=== PATIENT | female | born 1940 | race Caucasian/White ===

== ENCOUNTER → 2023-07-23 | Outpatient (CLI) | payer MEDICARE ==
--- NOTE | 2023-07-23 08:50 | P.GSHP ---
History of Present Illness H&P Date: 07/23/23 Chief Complaint: right breast invasive lobular cancer Stella is an 83 year old whtie female seen in consultation for Dr. Burgess regarding a right breast invasive lobular cancer. Screening mammogram on . This was felt to be bilateral. Seroquel and additional views of the right breast were recommended. Additional views were obtained on [id number]. This revealed depressed to be heterogeneously dense with a persistent mass in the upper outer quadrant of the right breast measuring 6.2 x 3.6 cm. This led to an ultrasound on the same date. The ultrasound revealed a heterogeneous irregular tissue with masslike appearance from the 9 o'clock position. It measu red grossly up to 6.4 cm. Biopsy was recommended. Biopsy was performed on [id number] which revealed an invasive lobular carcinoma grade 2. This is ER/PA positive and HER-2 questionable. The patient complains of some fullness in her right breast, it has been present for about 3 months. She has an inverted nipple for about 1 year on the right side. She does not feel anything of concern in the left breast. She has not had any surgery on her breast. She has intermittant twinges in her right breast. She is not compalining of any nipple discharge. caffeine: 3 cups/1/2 caf/day nicotine: none chocolate:occasional Family History: mother: brain cancer at 35 Hormonal History: menarche: 13 G0 menopause: hysterectomy at 52, took her ovaries, done for fibroids Surgical history: hysterectomy gallbladder Medical History: HTN SociaL History: nicotine: none alcohol: none drugs: none - Constitutional Constitutional: Denies chills, Denies fever - EENT Eyes: denies blurred vision, denies pain Ears: deny: decreased hearing, tinnitus Ears, nose, mouth and throat: Denies headache, Denies sore throat - Breasts Breasts: bilateral: as per HPI - Cardiovascular Cardiovascular: Denies chest pain, Denies shortness of breath - Respiratory Respiratory: Denies cough, Denies 7 - Gastrointestinal Gastrointestinal: Denies abdominal pain, Denies diarrhea, Denies nausea, Denies vomiting - Genitourinary (Female) Genitourinary: Denies dysuria, Denies hematuria - Menstruation Menstruation: Reports post hysterectomy - Musculoskeletal Musculoskeletal: Denies myalgias - Integumentary Integumentary: Denies pruritus, Denies rash - Neurological Neurological: Denies numbness, Denies weakness - Psychiatric Psychiatric: Denies anxiety, Denies depression - Endocrine Endocrine: Denies fatigue, Denies weight change - Hematologic/Lymphatic Comment: none - Allergic/Immunologic Allergic/Immunologic: Reports as per HPI Surgical - Exam - General no distress - Eyes normal ocular movement - Neck trachea midline - Respiratory normal respiratory effort - Cardiovascular Rhythm: regular Heart Sounds: normal: S1, S2 - Abdomen Abdomen: soft, non tender, no guarding, no rigid, no rebound - Integumentary normal turgor - Neurologic no disoriented, no combative - Musculoskeletal normal gait - Psychiatric oriented to time, oriented to person, oriented to place, speech is normal, memory intact Breast Exam: BRA: 38B inspection: Right nipple retraction, mass upper outer quadrant right breast Palpation: Right breast: Multi-positional exam mass upper outer quadrant approximately 12 x 11 cm in size, retraction of the nipple on the right, no fixation to chest wall Right axilla: No adenopathy of concern Left breast: Multi-positional exam no dominant masses or nodules of concern Left axilla: No adenopathy of concern Results Mammogram and ultrasound results reviewed with Dr. Coyne Pathology results reviewed, awaiting HER-2 Assessment and Plan Assessment: Impression: Right breast invasive lobular carcinoma Plan: MRI Appointment medical oncology Await HER-2 status Presentation of case at tumor board Cc: Dr. Burgess
[2023-07-23 08:55] VITALS: BP 173/96; PULSE 69; RESP 17; TEMP 98.3
== END ==
LOC: WWCWWP 07:39
PROVIDERS: ATTEND Surgery
DX: Z12.31 Encounter for screening mammogram for malignant neoplasm of breast (principal); D05.01 Lobular carcinoma in situ of right breast; I10 Essential (primary) hypertension; N63.11 Unspecified lump in the right breast, upper outer quadrant; Z90.710 Acquired absence of both cervix and uterus; Z79.899 Other long term (current) drug therapy; Z79.82 Long term (current) use of aspirin

== ENCOUNTER → 2023-08-03 | Outpatient (CLI) | payer MEDICARE ==
--- NOTE | 2023-08-06 09:50 | BMR ---
EXAM DATE: 08/05/2023 EXAM DESCRIPTION: MRI-Breast Bilat (W/WO Contrast) INDICATION: >20% lifetime risk for malignancy presenting for high risk surveillance COMPARISON: Comparison is made with relevant prior imaging in PACS. CONTRAST: 8 cc of Gadavist TECHNIQUE: Multiplanar MRI imaging of both breasts was performed with a dedicated breast coil, before and after intravenous administration of gadolinium contrast, using the standard breast mass protocol. Study was performed at [facility] with Radiologic interpretation by [facility]. FINDINGS: General breast composition: There are scattered areas of fibroglandular tissue Background parenchymal enhancement: Mild FINDINGS: Right Breast: Review of the dynamic contrast-enhanced series shows irregular masses and clumped nonmass enhancement in the upper outer breast and extending to involve all 4 quadrants measuring 8.5 x 7.3 x 6.9 cm. There is a clip artifact in the outer breast at the site of known biopsy. The non mass enhancement extends to the nipple with significant nipple retraction diffuse skin thickening. The non mass enhancement extends posteriorly to the pectoralis muscle with abnormal tethering and signal concerning for involvement of the pectoralis major muscle. Limitations in technique limited the evaluation of the axilla however there 3 are at least 3 abnormal level 1 and 2 lymph nodes with associated abnormal nonmass enhancement. Left Breast: Review of the dynamic contrast-enhanced series shows no rapidly enhancing masses, suspicious enhancement patterns or other abnormalities. The T2 weighted series shows no abnormality. IMPRESSION: Right Breast: BI-RADS Category6- Known biopsy proven malignancy 1. Multicentric biopsy proven disease involving all 4 quadrants of the breast with measurements as above. There is nonmass enhancement extending to and involving the nipple with abnormal retraction, there is also extension to the pectoralis muscle with abnormal enhancement and tethering of the muscle concerning for involvement of disease. 2. Limited evaluation of the axilla demonstrate at least 3 abnormal level 1 and 2 lymph nodes, one of which has been biopsied. Recommendation: Surgical/oncological consultation. Left Breast: BI-RADS Category 1- Negative No MRI evidence of malignancy. Recommendation: MRI screening in 1 year OVERALL ASSESSMENT -- BI-RADS 6 MTDD
== END | disposition home or self-care (01) ==
LOC: RADMRIMAIN 13:50
PROVIDERS: ATTEND Surgery
DX: C50.411 Malignant neoplasm of upper-outer quadrant of right female breast (principal); C50.511 Malignant neoplasm of lower-outer quadrant of right female breast
CPT/HCPCS: 77049; A9585

== ENCOUNTER → 2023-08-15 | Outpatient (CLI) | payer MEDICARE ==
--- NOTE | 2023-08-19 22:32 | PE ---
EXAMINATION TYPE: PET CT fusion skull to thigh DATE OF EXAM: 08/15/2023 COMPARISON: No pertinent CT Prior PET/CT: None HISTORY: Breast cancer TECHNIQUE: Following the intravenous administration of 13.5 mCi of F-18 FDG, whole body images are p erformed from the skull base to the midthigh. Images are reviewed on the computer in the coronal, ax ial, and sagittal planes. Reconstructed rotating images are created on independent workstation and r eviewed on the computer. A localization and attenuation correction CT is performed in conjunction w ith the PET scan. DLP: 676.73 mGycm SCAN: Initial Blood glucose: 86 mg/dL Average Mediastinum SUV: 2.71 Average Liver SUV: 3.53 FINDINGS: NECK: No abnormal uptake THORAX: There is focal uptake within the right breast image 116, SUV 5.66. This may be the patient's primary. Intrathoracic uptake is not identified. ABDOMEN: No abnormal uptake PELVIS: No abnormal uptake. OSSEOUS STRUCTURES: There is a focus of uptake within the scoliotic thoracic spine this appears to be the right lateral T12 level. Image 123, SUV 6.[address]: There is a large herniation of stomach into the left posterior thoracic region. COMPARISON: None IMPRESSION: 1. There may be a solitary suspicious area within the lower thoracic spine which could be compatible with a metastatic lesion. 2. Additional metastasis is not identified. 3. Some uptake in what may be the patient's primary in the anterior lateral right breast.
== END | disposition home or self-care (01) ==
LOC: RADPETMAIN 15:00
PROVIDERS: ATTEND Internal Medicine
DX: C50.411 Malignant neoplasm of upper-outer quadrant of right female breast (principal)
CPT/HCPCS: 78815; A9552

== ENCOUNTER → 2023-08-28 | Outpatient (CLI) | payer MEDICARE ==
--- NOTE | 2023-09-03 17:07 | MR ---
EXAMINATION TYPE: MR thoracic spine wo/w con DATE OF EXAM: 08/28/2023 COMPARISON: PET CT 08/15/2023 HISTORY: 83-year-old female C50.411, history of breast cancer Technique: Multiplanar, multisequence images of the thoracic spine were obtained before and after adm inistration of 8 mL intravenous Gadavist gadolinium contrast. FINDINGS: Dextroconvex scoliosis. There is a T2 bright and T1 hypointense lesion measuring 1.6 cm within the T12 vertebral body that sh ows avid postcontrast enhancement. This corresponds to the small focus of increased hypermetabolism o n patient's PET/CT. Other scattered small T2 hyperintense lesions show bright T1 signal and fat saturation suggesting sca ttered fatty matrix hemangiomas. 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 Moderate degenerative disc disease with mild bulging discs in the lower thoracic spine and thoracolumbar junction without definite spinal canal stenosis. Underlying large hiatal hernia containing the and essentially the entire stomach within the lower carlos st. Heterogeneous red marrow hyperplasia is present throughout. IMPRESSION: 1. Solitary, avidly enhancing lesion measuring 1.6 cm involving the T12 vertebral body corresponding to the metabolic area on PET/CT. The finding remains suspicious. Osseous metastasis remains to be exc luded. 2. Dextroconvex scoliosis. Large hiatal hernia containing essentially the entire stomach within the l ower chest.
== END | disposition home or self-care (01) ==
LOC: RADMRIMAIN 07:50
PROVIDERS: ATTEND Internal Medicine
DX: M41.84 Other forms of scoliosis, thoracic region (principal); C50.411 Malignant neoplasm of upper-outer quadrant of right female breast; K44.9 Diaphragmatic hernia without obstruction or gangrene
CPT/HCPCS: 72157; A9585

== ENCOUNTER 2023-09-12 08:27 | Day surgery (SDC) | payer MEDICARE ==
[2023-09-12 10:52] VITALS: PULSE 64; TEMP 97.6
[2023-09-12 11:16] VITALS: BP 164/90; RESP 18
--- NOTE | 2023-09-12 15:21 | US ---
EXAMINATION TYPE: US biopsy lymph node DATE OF EXAM: 09/12/2023 11:00 AM CLINICAL INDICATION:Female, 83 years old with history of C50.411 COMPARISON: Biopsy-proven right breast cancer. PET CT 08/15/2023 and MRI breast 08/03/2023 ATTENDING: Dr. Erwin Initial scanning of the right axilla in attempt to find any abnormal lymphadenopathy. A single small 7 mm hypoechoic circumscribed oval nodule is identified and targeted for biopsy. TECHNIQUE: Ultrasound guided percutaneous biopsy of the small 7 mm right axillary nodule using coaxial method. Jenny navarro administered light sedation to the patient. The patient was monitored by a qualified trained jenny medina independent of the Radiologist during sedation. FINDINGS: The procedure was explained to the patient. All questions were answered and informed consent was obta ined. The patient was placed supine and transverse ultrasound images were obtained. The overlying skin was marked and prepped using sterile method. Timeout was taken per protocol. Follo wing administration 1% local lidocaine anesthesia, a 17/18-gauge biopsy system was advanced with need le tip visualized within within the nodule. Two 18-gauge core biopsy was obtained, placed in formalin solution, and sent to pathology. The needle was removed. Other additional ultrasound scanning shows no abnormal fluid collection or ev ident complication. Hemostasis was obtained and a dressing was placed. Patient was taken for postprocedure observation in stable condition. IMPRESSIONS: Status post ultrasound guided biopsy of a small 7 mm nodule in the right axilla. Possible small lymph node, questionable MRI correlate. No paula axillary adenopathy could be identified by ultrasound. Pa thology results pending.
== END 2023-09-12 11:05 | disposition home or self-care (01) ==
LOC: RADPROMAIN 08:27
PROVIDERS: ATTEND Internal Medicine
DX: C50.411 Malignant neoplasm of upper-outer quadrant of right female breast (principal)
CPT/HCPCS: 38505; 76942; 88305; 88341; 88342

== ENCOUNTER → 2023-10-28 | Outpatient (CLI) | payer MEDICARE ==
--- NOTE | 2023-10-28 09:26 | CT ---
EXAMINATION TYPE: CT thor lumbar spine wo con DATE OF EXAM: 10/28/2023 COMPARISON: Thoracic spine radiograph 10/16/2023 and MRI 08/28/2023 HISTORY: 83-year-old female S24.114A, t11 lesion TECHNIQUE: Contiguous axial scanning of the thoracic and lumbar spine without IV contrast. Coronal an d sagittal reconstructions performed. CT DLP: 1110.1 mGycm Automated exposure control for dose reduction was used. FINDINGS: Redemonstrated large hiatal hernia with the entire stomach located in the lower chest area some of th e transverse colon also herniates into the left lower chest. There is diffuse osteopenia present. Within the right side of the T12 vertebral body, there are small foci of sclerosis and this seems to correspond to the region of hypermetabolism and enhancement on patient's prior PET CT and MRI, respec tively. However, no discrete mass or lytic destruction is identified here. Numerous additional small scattered sclerotic foci are present throughout the osseous structures. The y appear slightly more numerous than on 08/15/2023.. There is a S-shaped scoliosis of the thoracolumbar spine with bony ankylosis of the thoracic spine. V ertebral body heights and alignment are maintained. 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 Hypertrophic facet ar thropathy also present throughout the lumbar spine. At least mild spinal canal stenosis L4-L5. Alignment is maintained. Very minimal moderate neuroforami nal stenoses throughout the lumbar spine, more moderate to severe on the right at L4-L5. IMPRESSION: 1. NO LYTIC DESTRUCTION IDENTIFIED WITHIN THE RIGHT T12 VERTEBRAL BODY AT THE SITE OF PREVIOUS ENHANC ING LESION ON MRI. THERE ARE SOME SMALL SCLEROTIC FOCI HERE. ADDITIONAL SCATTERED SCLEROTIC FOCI THRO UGHOUT THE VISUALIZED SKELETON APPEAR TO BE MORE NUMEROUS COMPARED TO PRIOR PET/CT. UNABLE TO EXCLUDE SUBTLE PROGRESSION IN DIFFUSE OSSEOUS METASTATIC DISEASE. FOLLOW-UP RECOMMENDED. 2. REDEMONSTRATED S-SHAPED SCOLIOSIS WITH BONY ANKYLOSIS OF THE THORACIC SPINE. NO VERTEBRAL COMPRESS ION COLLAPSE OR MALALIGNMENT. SPONDYLOTIC CHANGE THROUGHOUT THE LUMBAR SPINE. 3. REDEMONSTRATED LARGE HIATAL HERNIA INVOLVING THE ENTIRE STOMACH AND A PORTION OF THE TRANSVERSE CO ISACC.
== END | disposition home or self-care (01) ==
LOC: RADCTMAIN 08:40
PROVIDERS: ATTEND Orthopaedic Surgery
DX: S24.114A Complete lesion at T11-T12 level of thoracic spinal cord, initial encounter (principal); M41.9 Scoliosis, unspecified; M47.816 Spondylosis without myelopathy or radiculopathy, lumbar region; K44.9 Diaphragmatic hernia without obstruction or gangrene
CPT/HCPCS: 72128; 72131

== ENCOUNTER 2023-11-07 10:13 | Day surgery (SDC) | payer MEDICARE ==
--- NOTE | 2023-11-07 06:37 | P.HPOR ---
History of Present Illness H&P Date: 10/16/23 .D:Date: 10/16/23 : 03:20pm .T:Title: Aman Villarreal [facility] H&P Age: 83 year Height: 5'4" Weight: 173 lbs BMI: 29.70 kg/m2 Occupation: Retired VAS: 0 CC: Evaluation for possible metastasis of thoracic spine (Referral from Dr. Hampton) IMPRESSION: It was my pleasure to have seen and examined Stella. I reviewed the patient's clinical syndrome, physical findings, and imaging studies during the appointment today. It is my impression that the patient has a diagnosis of. 1. T12 lesion, unknown 2. h/o breast cancer PLAN: Based on my findings I suggest the following course of action: -I discussed treatment options with the patient, including operative and non- operative options, and they have elected to proceed with the following surgical procedure: T12 biopsy with ablation The indications, risks, benefits, and alternatives to surgery were discussed with the patient and family at length. Specifically (but not limited to) the risks of infection, stiffness, recurrence of symptoms, need for revision surgery, local numbness, neurovascular injury, and blood clots were discussed. The patient's questions were answered. The decision to proceed was made. Consent will be obtained for the procedure. -I have ordered CT scans of the thoracic and lumbar spine for preoperative/surgical planning. - Ambulate daily - Take medications as directed - Ice and rest for pain and swelling control. FOLLOW UP: Post Procedure HISTORY: Ms. Callejas presents to the office today, 10/16/23, for evaluation for possible metastasis of thoracic spine. The patient was referred to my office by Dr. Hampton for further evaluation and discussion of possible biopsy. The patient denies experiencing any mid or low back pain at this time. The patient does note history of breast cancer in June 2023. The patient denies any lower extremity pain, numbness, or tingling. She notes no difficulties with completing activities of daily living. She denies experiencing any sleep disturbances. She is not currently taking any pain medications. The patient denies any f/c/sob/cp, perineal numbness or tingling, bowel or bladder incontinence/retention. The patient ambulates independently today. The patients' past social, medical, family, surgical history, as well as review of systems, have been reviewed. Please refer to the Neurosurgery History and Physical form that has been scanned into our electronic medical record system. 16 points review of systems completed and as stated in HPI, all other systems reviewed are negative. Social History: Reviewed, see appropriate section of the chart for details. Family History: Reviewed, see appropriate section of the chart for details. P2 Past Medical History: Reviewed, see appropriate section of the chart for details. Current Medications: P1Rx: anastrozole 1 mg tablet Ref: 0 Rx: aspirin 81 mg tablet,delayed release Ref: 0 Rx: Calcium 600 mg calcium (1,500 mg) tablet Ref: 0 Rx: levothyroxine 50 mcg capsule Ref: 0 Rx: lisinopriL 10 mg tablet Ref: 0 Rx: metoprolol tartrate 25 mg tablet Ref: 0 Rx: multivitamin tablet Ref: 0 Rx: simvastatin 40 mg tablet Ref: 0 P1 RADIOGRAPHS: Multiview Xray of the Thoracic Spine taken on 10/16/2023 at [facility] are reviewed today in office and demonstrate: Aligment maintained. No fractures. No lytic lesions noted. NO blastic lesions noted that are visible on XRAY. PET CT shows more. PET CT scan performed at [facility] on 08/15/2023: area of increased uptake at the T12 vertebral body region. No other areas of suspicious lesions at this time. No fractures noted at this time. PHYSICAL EXAM: General: AOX3, NAD, Well hydrate, Well nourished HEENT: No lumps or masses Heart: RRR, no murmur, no beverly Lungs: CTAB, no w/r/r Extremities: No color changes, no pooling Hairy Patches: ABSENT Dorsal Skin Dimples: Normal [employer] spots: ABSENT Surgical Incisions: Muscle Appearance: Well formed, no atrophy Palpation: Midline: NO Paracervical: NO Parathoracic: NO Paralumbar: NO SIJ Testing: Yes TTP: No Fortins Finger: No FABER4: No Compression: No Distraction: No Thigh thrust: No Hip thrust: No Postural Balance: Coronal: BALANCED Sagittal: BALANCED Shoulder height: LEVEL Pelvic Girdle: LEVEL ROM and Appearance: Neck: UNRESTRICTED Lumbar: UNRESTRICTED Shoulders: Symmetrical Hips: Symmetrical Knees: Symmetrical Hands: Symmetrical Feet: Symmetrical VASCULAR STATUS: RUE- 2 LUE-2 RLE-2 LLE-2 Edema: NONE NEUROLOGICAL EXAMINATION: Mental Status: Awake, alert, oriented fully with normal attention, concentration and memory. Fluent appropriate speech. CRANIAL NERVES: I: Olfactory not tested. II: Visual acuity normal, no visual field deficit noted with confrontation. III,IV: Normal pupillary reflexes & intact extraocular movements without nystagmus. V,: Intact symmetrical facial sensation. VII: Intact symmetrical facial motor movementVIII: Hearing intact. IX,X: Intact gag, swallow, & normal voice. XI: Sternocleidomastoid, trapezius function intact. XII: Tongue midline with normal movements. TENSIONING: SLR-NEG Lhermittes- NEG Spurling's Sign- NEG Cubital Percussion- NEG Tinels at wrist- NEG MOTOR EXAM (0-5/5, NT) Muscle appearance:Symmetrical, without signs of atrophy or dystrophy UPPER EXTREMITY RIGHT LEFT Shoulder Abduction 5 5 Biceps 5 5 Triceps 5 5 Wrist Extension 5 5 Hand Intrinsic 5 5 Propeller Layout Worker 5 5 -Hand and finger dexterity intact bilaterally? YES -Dysdiadochokinesia examination negative bilaterally? YES LOWER EXTREMITY RIGHT LEFT Hip Flexion 5 5 Knee Extension 5 5 Knee Flexion 5 5 Dorsiflexion 5 5 Plantarflexion 5 5 EHL 5 5 FHL 5 5 -Toe heel walk / heel-toe walk intact while maintaining satisfactory balance? yes -Squatting/straightening w/o assistance to a min of 60 degree knee flexion? yes -Single leg stance: intact -Trendelenburg sign negative bilaterally REFLEXES (0-4/2, NT): RUE-2LUE-2 RLE-2 LLE-2 PATHOLOGICAL REFLEXES: Hoffmans: ABSENT BL Clonus: ABSENT BL Babinski: NEG BL Rectal Tone: INTACT SENSATION (0-4, NT): RUE-2LUE-2 RLE-2 LLE-2 Dermatomal deficit: GAIT AND FUNCTIONAL EVALUATION: Ambulatory aids- INDEPENDENT Rombergs test- NEG toe/heel walk- INTACT Squatting to a min of 60 deg and back- ABLE Single leg stance- ABLE Hand to finger (nose)- ABLE smooth Spine Surgery Risk Review Ms. Callejas is presenting for evaluation of for evaluation for possible metastasis of thoracic spine . It was my pleasure to have seen and examined Ms. Callejas. In our visit today we have had a chance to go over subjective complaints, physical examination findings and treatments including the natural course history without intervention and various interventional options. The patients imaging demonstrates: Multiview Xray of the Thoracic Spine taken on 10/16/2023 at [facility] are reviewed today in office and demonstrate: Aligment maintained. No fractures. No lytic lesions noted. NO blastic lesions noted that are visible on XRAY. PET CT shows more. PET CT scan performed at [facility] on 08/15/2023: area of increased uptake at the T12 vertebral body region. No other areas of suspicious lesions at this time. No fractures noted at this time. On physical exam, Ms. Callejas demonstrates: The patient was referred to my office by Dr. Hampton for further evaluation and discussion of possible biopsy. The patient denies experiencing any mid or low back pain at this time. The patient does note history of breast cancer in June 2023. The patient denies any lower extremity pain, numbness, or tingling. I have explained to the patient that as their condition progresses it will cause further neurological deficits and eventual paralysis. Based on the patients imaging, physical exam, and the rapid progression and disabling nature of their symptoms, at this time I recommend surgery in the form of a: T12 biopsy with ablation. I discussed the risk and benefits of this procedure at length with Ms. Callejas. The patient agreed to considered pursuing the procedure above mentioned. Prior to surgery, she should follow up with her PCP (Cardio, ID, IM etc) for clearance. Questions were invited and answered, and the patient wishes to proceed as outlined below. Currently, I am recommendin.T12 biopsy with ablation 2.Review of surgical risks and benefits as well as an educational packet on the proposed surgical procedure. Risks: All surgical procedures come with inherent risks, including those related to positioning, anesthesia, intraoperative findings, and postoperative complications. It is important to understand that surgery does not come with any guarantee of a successful outcome as complications and adverse events are always possible. The patient was given a handout in office today discussing the surgical procedure and risks associated with the intervention, both of which were discussed with the patient. These risks include but are not limited to the following: * Experiencing same, different or even worse symptoms in back, neck, arms, or legs compared to before surgery. Requiring further surgery or other forms of treatment presently or at some time in the future at same or other levels of the intended spine surgery. On an extreme but fortunately relatively rare basis severe complication such as blindness, stroke, heart attack, temporary and/or permanent nerve injury, paralysis, coma, or may occur, sometimes without known explanation. Surgical complications may include but are not limited to risk of infection, fluid accumulation in the surgical dissection site, including a seroma or hematoma, that requires additional surgery, wound drainage, bleeding, new numbness or weakness, vision changes/loss, spinal fluid leakage, non-healing and/or infected incision, headaches, difficulty or inability to swallow, hoarseness, hemopneumothorax, pneumothorax, impotence, retrograde ejaculation, vaginal dryness; injury to nerves, spinal cord, blood vessels, lymphatics or other vital organs (i.e., bowel injury, injury to the great vessels); heterotopi c bone formation; complications related to the hardware such as screws, rods, cages including misplaced hardware, device failure, instrumentation at the wrong spine level, hardware fracture/breakage, or hardware loosening; vertebral failure of the spinal column above or below the newly placed hardware; retained surgical instrumentations or devices and the need for further surgery. * Medical risks of the planned spine surgery include but are not limited to generalized Infections to the whole body or local areas outside of the surgical site (sepsis), heart attack, bleeding, anaphylaxis, meningitis, seizure, epilepsy, hearing loss, burn matthew, laceration of the head or other areas of the body, bruising, hypersensitivity of the skin, bladder over distension; allergic reaction; shoulder injury related to positioning; fat, blood and air clots to other areas of the body like heart, lungs, brain; failure of internal organs such as lungs, kidneys, liver and excessive bleeding. If blood transfusions are necessary, note that transfusions may cause intolerance reactions such as anaphylaxis or other complex reactions. Despite best efforts, the results of spine surgery might not heal in terms of bone, soft tissues such as skin, fascia, ligaments, and joints. Additionally, in order to achieve best possible results, spine surgery may be carried out beyond the initially planned levels and involve decompression, fusion including insertion of hardware at levels other than the original intended area of surgical interest change some portions of the procedure in order to ensure the best possible outcomes. With spine surgery and spinal fusion, there are different off label uses of instrumentation (devices, implants and hardware) as well as biological substances (bone morphogenic proteins, demineralized bone matrix) as well as using extra bone from allograft sources (i.e. cadaver bone) or autograft (iliac crest bone, ribs, or the spine itself). The patient has been given information about these practices and their inherent risks and benefits. Former[facility] is an educational center that serves as a training facility for neurosurgical and orthopedic FULL STACK NET DEVELOPER and Nursing students. Physician assistants are medically trained surgical providers who function in the outpatient, inpatient, and operating room setting under the direct supervision of the attending surgeon. Formerly [facility] has multiple operating rooms with single and overlapping rooms running daily. They currently function under the required guidelines as produced by the [facility] Finance Committee with regards to the overlapping rooms and will continue to comply with changes to this policy as they occur. The requirements include and are complied with as follows: (1) the critical portions of the overlapping rooms will not occur at the same time, (2) the attending physician will be physically present during the critical portions of the procedure and immediately available during the entire case, and (3) a back-up attending is designated should the primary attending not be immediately available. The patient has had a chance to review all the listed information, has been given print outs detailing this information, and has had all his/her questions answered to their satisfaction. It was my pleasure to have seen and examined Ms. Callejas. In our visit today we have had a chance to go over my understanding of our patient's current condition, the natural course history without intervention and various interventional options. Questions were invited and answered, and the patient wishes to proceed as outlined above. I have seen and examined the patient for 25 minutes and we have spent more than 50% of the time in repeat and detailed counseling about the patient's condition, its natural course history with out and as much as can be predicted with surgery and re-review of various surgical treatment options. In conclusion, Ms. Callejas requested we proceed with the above suggested surgery and are willing to accept risks and limitations of the suggested surgery as nature of the disease process and our best attempts at treatment for the condition. Thank you again for allowing us to be part of your patient's care. Please don't hesitate to contact me if you have any further questions. Signed and authenticated by: dewayne Carey DO [facility] Minimally Invasive Spine Surgery [address] [place] [address] PATIENT EDUCATION: Medications Reviewed: YES In our visit today Ms. Callejas and I have had a chance to go over my understanding of the patient's current condition, the natural course history without intervention and various interventional options. Questions were invited and answered, and the patient wishes to proceed as outlined above. I will be sure to keep you updated after Ms. Callejas returns here for further follow-up. Thank you again for your referral. Please do not hesitate to contact me if you have any further questions. Signed and authenticated by: Ming Swift [place] [facility] [address] [place] [address] Kristy, [address] [address] This message is confidential, intended only for the named recipient(s) and may contain information that is privileged or exempt from disclosure under applicable law. If you are not the intended recipient(s), you are notified that the dissemination, distribution or copying of this information is strictly prohibited. If you received this message in error, please notify the sender then delete this message. #Orders: Lumbar 2v xray #Orders: CT Lumbar Spine #Orders: CT Scan # SIGNED BY Ming Carey (GOO)10/23/2023 12:57P Past Medical History Past Medical History: Cancer, Hypertension, Thyroid Disorder Additional Past Medical History / Comment(s): Reason for surgery 11-07-23- "They found a lesion." RECENT dx Rt Breast Cancer Jul 2023- no chemo, no radiation History of Any Multi-Drug Resistant Organisms: None Reported Past Surgical History: Cholecystectomy, Hysterectomy Additional Past Surgical History / Comment(s): Rt breast BX jul 2023. Past Anesthesia/Blood Transfusion Reactions: No Reported Reaction Smoking Status: Never smoker - Past Family History Mother History Unknown: Yes Family Medical History: Cancer Additional Family Medical History / Comment(s): Brain cancer Medications and Allergies Home Medications Medication Instructions Recorded Confirmed Type Calcium Carbonate [Calcium] 1 cap PO DAILY 07/23/23 11/04/23 History Levothyroxine Sodium [Tirosint] 10 mg PO HS 07/23/23 11/04/23 History Metoprolol Succinate (ER) [Toprol 25 mg PO QAM 07/23/23 11/04/23 History XL] Multivitamin [Multivitamins Adult 1 tab PO QAM 07/23/23 11/04/23 History Gummies] Simvastatin 40 mg PO HS 07/23/23 11/04/23 History lisinopriL [Prinivil] 10 mg PO QAM 08/27/23 11/04/23 History Anastrozole [Arimidex] 1 mg PO DAILY 09/12/23 11/04/23 History Allergies Allergy/AdvReac Type Severity Reaction Status Date / Time No Known Allergies Allergy Verified 11/04/23 10:12 Physical Examination Osteopathic Statement: *. No significant issues noted on an osteopathic structural exam other than those noted in the History and Physical/Consult.
[~2023-11-07 10:13] MED LIST: ACETAMINOPHEN TAB 500 MG TAB PO PRN; HYDROmorphone 0.5 MG/0.5 ML SYRINGE IVP PRN; ONDANSETRON 4 MG/2 ML VIAL IVP PRN; TRANEXAMIC 1,000 MG/100ML-NACL 1,000 MG in SALINE 1 100ML.BAG IVPB PRN
[2023-11-07] MEDS: LACTATED RINGERS 1,000 ML IV SCH (10:41)
[2023-11-07] MEDS: GABAPENTIN 300 MG CAP PO PRN (11:18)
[2023-11-07 11:20] VITALS: TEMP 98.4
[2023-11-07] MEDS: ONDANSETRON 4 MG/2 ML VIAL IVP ONE (11:20)
[2023-11-07] MEDS: DEXAMETHASONE SOD PHOSPHATE 4 MG/ML 1 ML VIAL IV ONE (11:20)
[2023-11-07 11:27] LABS: Basophils % (A) 0 %; Eosinophils # (A) 0.1 k/uL (0-0.7); Eosinophils % (A) 1 %; HCT 45.6 % (34.0-46.0); HGB 15.2 gm/dL (11.4-16.0); Lymphocytes % (A) 16 %; MCHC 33.3 g/dL (31.0-37.0); MCV 93.2 fL (80.0-100.0); Mean Platelet Volume 7.7; Monocytes # (A) 0.4 k/uL (0-1.0); Monocytes % (A) 7 %; Neutrophils # (A) 4.7 k/uL (1.3-7.7); Neutrophils % (A) 74 %; Platelet Count 172 k/uL (150-450); RBC 4.89 m/uL (3.80-5.40); RDW 12.2 % (11.5-15.5); WBC 6.3 k/uL (3.8-10.6)
[2023-11-07 11:56] LABS: Partial Thromboplastin Time 25.5 sec (22.0-30.0); Prothrombin Time 10.6 sec (10.0-12.5)
[2023-11-07] MEDS ORDERED: MIDAZOLAM 2 MG/2 ML VIAL ONE (12:32)
[2023-11-07] MEDS ORDERED: TRANEXAMIC 1,000 MG/100ML-NACL PREMIX BAG ONE (12:32)
[2023-11-07] MEDS ORDERED: LIDOCAINE 1% INJ 10MG/ML (20 ML MDV) ONE (12:32)
[2023-11-07] MEDS ORDERED: SUCCINYLCHOLINE CHLORIDE 200 MG/10 ML VIAL IV ONE (12:32)
[2023-11-07] MEDS ORDERED: WATER FOR INJECTION, STERILE 10 ML VIAL IV ONE (12:32)
[2023-11-07] MEDS ORDERED: PROPOFOL 10 MG/ML 20 ML VIAL IV ONE (12:32)
[2023-11-07] MEDS ORDERED: fentaNYL (PF) 50 MCG/ML 2 ML AMP ONE (12:32)
[2023-11-07] MEDS ORDERED: ePHEDrine 50 MG/ML 1 ML VIAL ONE (12:32)
[2023-11-07] MEDS: LIDOCAINE 2%-EPI 1:100,000 20 ML VIAL SQ ONE (13:34)
[2023-11-07] MEDS: LACTATED RINGERS 1,000 ML IV ONE (14:33)
[2023-11-07 14:36] VITALS: RESP 16
--- NOTE | 2023-11-07 15:33 | FL ---
EXAMINATION TYPE: FL guidance operating room, XR lumbar spine 2 or 3V DATE OF EXAM: 11/07/2023 Comparison: None Clinical History: 83-year-old female KYPHOPLASTY AND BIOPSY Findings: 1 MIN 5 SEC FL 4.966 Gycm2 DAP dose 10 images submitted.
[2023-11-07 15:47] VITALS: BP 150/82; PULSE 92
--- NOTE | 2023-11-07 16:54 | P.OP ---
Date of Procedure: 11/07/23 Preoperative Diagnosis: 1. T12 VERTEBRAL BODY LESION, LIKELY METESTATIC BCA 2. MID BACK PAIN 3. COMPLEX MEDICAL PATIENT Postoperative Diagnosis: 1. T12 VERTEBRAL BODY LESION, LIKELY METESTATIC BCA 2. MID BACK PAIN 3. COMPLEX MEDICAL PATIENT Procedure(s) Performed: 1. NEEDLE LOCALIZATION OF T12 USING FLOUROSCOPIC GUIDANCE 2. T12 VERTEBRAL BODY BIOPSY 3. T12 TUMORAL ABLATION 4. T12 VERTEBROPLASTY Implants: NONE Anesthesia: GETA Surgeon: Ming Carey Teacher Of The Visually Impaired #1: Yogesh Matthews (was present and assisted with all aspects of the case from positin to closure) Estimated Blood Loss (ml): 2 IV fluids (ml): 250 Urine output (ml): 0 Pathology: other (T12 vertebral body biopsy) Condition: stable Disposition: PACU Indications for Procedure: Ms. Callejas is presenting for evaluation of for evaluation for possible metastasis of thoracic spine . It was my pleasure to have seen and examined Ms. Callejas. In our visit today we have had a chance to go over subjective complaints, physical examination findings and treatments including the natural course history without intervention and various interventional options. The patients imaging demonstrates: Multiview Xray of the Thoracic Spine taken on 10/16/2023 at [facility] are reviewed today in office and demonstrate: Aligment maintained. No fractures. No lytic lesions noted. NO blastic lesions noted that are visible on XRAY. PET CT shows more. PET CT scan performed at [facility] on 08/15/2023: area of increased uptake at the T12 vertebral body region. No other areas of suspicious lesions at this time. No fractures noted at this time. On physical exam, Ms. Callejas demonstrates: The patient was referred to my office by Dr. Hampton for further evaluation and discussion of possible biopsy. The patient denies experiencing any mid or low back pain at this time. The patient does note history of breast cancer in June 2023. The patient denies any lower extremity pain, numbness, or tingling. I have explained to the patient that as their condition progresses it will cause further neurological deficits and eventual paralysis. Based on the patients imaging, physical exam, and the rapid progression and disabling nature of their symptoms, at this time I recommend surgery in the form of a: T12 biopsy with ablation. I discussed the risk and benefits of this procedure at length with Ms. Callejas. The patient agreed to considered pursuing the procedure above mentioned. Prior to surgery, she should follow up with her PCP (Cardio, ID, IM etc) for clearance. Questions were invited and answered, and the patient wishes to proceed as outlined below. Currently, I am recommendin.T12 biopsy with ablation Description of Procedure: The patient was seen and examined in the preoperative area. All preoperative protocols were followed. Informed consent was obtained risks and benefits of the procedure were discussed at length. Risks including bleeding infection damage to the surrounding tissue and risk of reoperation were discussed with the patient. Risk of anesthesia up to and including was a discussed with the patient. These are outlined in the risk review. They were willing to accept these risks and all of the risks of surgery. The patient was given a weight- based dose of antibiotics in the form of 2 g Ancef. The patient was seen and evaluated by the anesthesia team who deemed them fit for surgery. The site was marked, the patient was willing to proceed with the procedure. The patient was transferred to the operative suite by the Department of anesthesia. They were then drifted off to sleep by the department anesthesia and GETA was performed. The patient tolerated this well. [Pelayo catheter was placed by nursing staff, atraumatically]. Once confirmation of lines and ventilation the patient was transferred to a [prone Anthony table very carefully]. All bony prominences including wrists, elbows, axilla, chest, hips, and thighs, and feet were padded very well. Special attention was paid to the genitalia and these were padded accordingly. SCDs were placed on bilateral lower extremities and were connected. Arms were well padded and placed [on arm boards up and out in the 90/90 position]. Once in position, again we confirmed good ventilation capabilities and that lines were running appropriately. The patient's thoracic spine was then exposed. 1010s were placed outlining the incision site. Standard alcohol was used to clean the incision site and allowed to dry. C-arm was used to biomark the patient and confirm level for incision which was marked with a skin marker. Operative briefing was performed with all teams and everyone in agreement to proceed. The patient was then prepped and draped in a normal sterile fashion. Timeout was then performed and all parties were in agreement with the procedure to be performed. Needle localization was then performed using fluoroscopic guidance of the T12 region. Skin nicks were then made bilaterally and Jamshidi's were introduced into the pedicles bilaterally using biplanar fluoroscopy and T12. Once you she has were in good position on AP and lateral a biopsy was taken on both sides of the vertebral body. This biopsy was sent for pathology. We then used the drill to access the vertebral body. A path this drill shavings were then also sent for pathology. We then introduced the ablation probes into the Jamshidi's under lateral fluoroscopy and placement optimally within the vertebral body. We then ran the 90 minute standard sequence for the [employer] tumoral ablation system. Once this was completed cement was placed within the T12 vertebral body for augmentation. Cement fill was good there is no extravasation and the patient was stable entirely through instrumentation. She was done under lateral fluoroscopy. Once this was completed the Jamshidi's were removed bilaterally and there is no cement trailing. The wounds were then cleaned local was placed and they were closed with Monocryl and glue. There were dressed sterilely with Band-Aids. The patient was transferred back to their hospital bed atraumatically. Patient was then awakened and extubated by the department of anesthesia having tolerated the procedure very well with no complications. They were transferred to the postoperative care unit in stable condition.
== END 2023-11-07 15:47 | disposition home or self-care (01) ==
LOC: OR 10:13
PROVIDERS: ATTEND Orthopaedic Surgery
DX: S24.114A Complete lesion at T11-T12 level of thoracic spinal cord, initial encounter (principal); I10 Essential (primary) hypertension; E78.5 Hyperlipidemia, unspecified; E03.9 Hypothyroidism, unspecified; Z98.1 Arthrodesis status; Z79.890 Hormone replacement therapy; Z79.899 Other long term (current) drug therapy; Z85.3 Personal history of malignant neoplasm of breast; X58.XXXA Exposure to other specified factors, initial encounter
CPT/HCPCS: 20220; 85025; 85610; 85730; 88307; 88311; 72100; J2250; J0330; J1100; J0690; J2405; J2001; J3010; J2704

== ENCOUNTER → 2023-11-11 | Outpatient (CLI) | payer MEDICARE ==
--- NOTE | 2023-11-11 16:04 | BD ---
EXAMINATION TYPE: Axial Bone Density DATE OF EXAM: 11/11/2023 CLINICAL HISTORY: 83 years old Female. ICD-10 CODE: M85.88 OTH DISRD OF BONE DENSITY Height: 64in Weight: 172lb FRAX RISK QUESTIONS: Secondary Osteoporosis: RISK FACTORS HISTORY OF: Surgery to Spine/Hip(right/left)/Wrist (right/left): Kyphoplasty at L1 When: 3-7-24 MEDICATIONS: Thyroid Medications: Which medication: Synthroid How Lon+ years EXAM MEASUREMENTS: Bone mineral densitometry was performed using the [employer] System. Bone mineral density as measured about the Lumbar spine is: ----- L1-L4(G/cm2): 1.196 T Score Values are as follows: ----- L1: 0.5 ----- L2: -0.5 ----- L3: -0.5 ----- L4: 0.8 ----- L1-L4: 0.1 Z Score Values are as follows: ----- L1: 2.0 ----- L2: 1.0 ----- L3: 1.0 ----- L4: 2.3 ----- L1-L4: 1.6 First dexa at [facility] Bone mineral density about the R hip (g/cm2): 0.927 Bone mineral density about the L hip (g/cm2): 0.968 T Score values are as follows: -----R Neck: -1.6 -----L Neck: -1.9 -----R Total: -0.6 -----L Total: -0.3 Z Score values are as follows: -----R Neck: 0.4 -----L Neck: 0.1 -----R Total: 1.2 -----L Total: 1.6 FRAX%s: The graph provided illustrates a 15.6% chance for a major osteoporotic fx and a 4.6% chance f or the hips probability for fx in 10 years time. IMPRESSION: Osteopenia (T Score between -2.5 and -1). There is slightly increased risk of fracture and the patient may be considered for treatment. Re-Screen 2-5 years. NOTE: T-SCORE=SD OF THE YOUNG ADULT MEAN.
== END | disposition home or self-care (01) ==
LOC: RADBDWWP 12:02
PROVIDERS: ATTEND Internal Medicine
DX: C50.411 Malignant neoplasm of upper-outer quadrant of right female breast (principal); M85.89 Other specified disorders of bone density and structure, multiple sites; I10 Essential (primary) hypertension; Z71.3 Dietary counseling and surveillance
CPT/HCPCS: 77080

== ENCOUNTER → 2023-12-05 | Outpatient (CLI) | payer MEDICARE ==
[2023-12-05 08:17] VITALS: BP 171/99; PULSE 65; RESP 15; TEMP 97.8
--- NOTE | 2023-12-05 08:44 | P.PN ---
Subjective Progress Note Date: 12/05/23 right breast invasive lobular cancer Stella is an 83 year old white female seen in consultation for Dr. Burgess regarding a right breast invasive lobular cancer. Screening mammogram on . This was felt to be bilateral. Additional views of the right breast were recommended. Additional views were obtained on [id number]. This revealed the breast to be heterogeneously dense with a persistent mass in the upper outer quadrant of the right breast measuring 6.2 x 3.6 cm. This led to an ultrasound on the same date. The ultrasound revealed a heterogeneous irregular tissue with mass like appearance from the 9 o'clock position. It measured grossly up to 6.4 cm. Biopsy was recommended. Biopsy was performed on [id number] which revealed an invasive lobular carcinoma grade 2. This is ER/SD positive and HER-2 questionable, Fish (-). The patient complained of some fullness in her right breast, it had been present for about 3 months. She has an inverted nipple for about 1 year on the right side. She does not feel anything of concern in the left breast. She has not had any surgery on her breast. She has intermittent twinges in her right breast. She is not complaining of any nipple discharge. Core biopsy right axilla 09-13-2023 positive invasive lobular cancer Treated with hormone therapy, anastrozole. Secondary to osteopenia Fosamax has been added. She underwent a T12 vertebral body biopsy on 11-07-2023 which was negative for metastatic disease or myeloma. A DEXA scan revealed osteopenia. Due to the osteopenia and use of anastrozole she is started on Fosamax. She will continue vitamin D and calcium. She has been tolerating the anastrozole well. She is going to have a repeat right breast MRI. Note 11-20-2023 Dr. Hampton reviewed Radiation oncology note 08-21-2023 reviewed; it was felt that she had a clinical stage IIIb T4a N1 M0 ER/SD positive HER2 negative G2 invasive lobular carcinoma of the right breast; the plan was for completion of neoadjuvant therapy, probable mastectomy, and postprocedure radiation therapy secondary to the stage of the tumor. She states the lesion has gotten smaller, she also states the pain is less. caffeine: 3 cups/1/2 caf/day nicotine: none chocolate:occasional Family History: mother: brain cancer at 35 Hormonal History: menarche: 13 G0 menopause: hysterectomy at 52, took her ovaries, done for fibroids Surgical history: hysterectomy gallbladder Medical History: HTN SociaL History: nicotine: none alcohol: none drugs: none - Constitutional Constitutional: Denies chills, Denies fever - EENT Eyes: denies blurred vision, denies pain Ears: deny: decreased hearing, tinnitus Ears, nose, mouth and throat: Denies headache, Denies sore throat - Breasts Breasts: bilateral: as per HPI - Cardiovascular Cardiovascular: Denies chest pain, Denies shortness of breath - Respiratory Respiratory: Denies cough - Gastrointestinal Gastrointestinal: Denies abdominal pain, Denies diarrhea, Denies nausea, Denies vomiting - Genitourinary (Female) Genitourinary: Denies dysuria, Denies hematuria - Menstruation Menstruation: Reports post hysterectomy - Musculoskeletal Musculoskeletal: Denies myalgias - Integumentary Integumentary: Denies pruritus, Denies rash - Neurological Neurological: Denies numbness, Denies weakness - Psychiatric Psychiatric: Denies anxiety, Denies depression - Endocrine Endocrine: Denies fatigue, Denies weight change - Hematologic/Lymphatic Comment: none - Allergic/Immunologic Allergic/Immunologic: Reports as per HPI Objective - Vital Signs Vital signs: Vital Signs Temp 97.8 F 12/05/23 08:01 Pulse 65 12/05/23 08:01 Resp 15 12/05/23 08:01 BP 171/99 12/05/23 08:01 Pulse Ox 96 12/05/23 08:01 FiO2 Intake & Output 12/04/23 12/05/23 12/05/23 18:59 06:59 18:59 Weight 79.379 kg - Constitutional General appearance: Present: cooperative - EENT Eyes: Present: EOMI ENT: Present: hearing grossly normal - Neck Neck: Present: normal ROM - Respiratory Respiratory: bilateral: CTA - Cardiovascular Heart sounds: normal: S1, S2 - Integumentary Integumentary: Present: normal turgor - Musculoskeletal Musculoskeletal: Present: gait normal - Psychiatric Psychiatric: Present: A&O x's 3, appropriate affect, intact judgment & insight - Additional findings Additional findings: Breast Exam: BRA: 38B inspection: Right nipple retraction, mass upper outer quadrant right breast Palpation: Right breast: Multi-positional exam mass upper outer quadrant approximately 12 x 11 cm in size, retraction of the nipple on the right, no fixation to chest wall Right axilla: No adenopathy of concern Left breast: Multi-positional exam no dominant masses or nodules of concern Left axilla: No adenopathy of concern patient is status post hormone therapy with Assessment and Plan Assessment: Impression: Right breast invasive lobular carcinoma Plan: right mastectomy with needle localization of + axillary node and right sentinel node injection, right sentinel node biopsy, possible right axillary node dissection clearance Dr. Burgess This of the procedure discussed with the patient. Risk include but are not limited to bleeding, infection, reaction to the anesthetic. We will attempt to do a needle localization and resection of the prior positive biopsied lymph node in the axilla, there is the possibility that that node would not be adequately local lysed or sampled, additionally there is a risk of lymphedema, decreased sensation to the inner arm, or injury to the nerve resulting in winged scapula. Additionally the skin may be involved in the inferior aspect of the breast and if that were to be a positive margin postprocedure additional surgery or treatment may be necessary. The patient understands and wishes to proceed. Functional assessment done by Sherrell Jordan Education done by Sherrell Jordan Cc: Dr. Burgess
== END ==
LOC: WWCWWP 07:34
PROVIDERS: ATTEND Surgery
DX: Z12.31 Encounter for screening mammogram for malignant neoplasm of breast (principal); C50.911 Malignant neoplasm of unspecified site of right female breast; N63.11 Unspecified lump in the right breast, upper outer quadrant; Z17.0 Estrogen receptor positive status [ER+]; Z90.11 Acquired absence of right breast and nipple; Z90.710 Acquired absence of both cervix and uterus

== ENCOUNTER 2023-12-17 11:42 | Day surgery (SDC) | payer MEDICARE ==
[~2023-12-17 11:42] MED LIST changes: -ACETAMINOPHEN TAB 500 MG TAB PO PRN; +LIDOCAINE 1% (10MG/ML) FOR IV START INTRADERMA PRN; +MIDAZOLAM 2 MG/2 ML VIAL IV PRN; -ONDANSETRON 4 MG/2 ML VIAL IVP PRN; -TRANEXAMIC 1,000 MG/100ML-NACL 1,000 MG in SALINE 1 100ML.BAG IVPB PRN
[2023-12-17] MEDS: LACTATED RINGERS 1,000 ML IV SCH (12:36)
[2023-12-17] MEDS: ALPRAZolam 0.25 MG TAB ONE (12:54)
[2023-12-17] MEDS: ACETAMINOPHEN TAB 500 MG TAB PO PRN (12:54)
[2023-12-17] MEDS: LIDOCAINE 1% INJ 10MG/ML (20 ML MDV) SQ ONE ×4 (13:38→17:52)
[2023-12-17] MEDS: HEPARIN SODIUM,PORCINE 5,000 UNIT/ML 1 ML VIAL SQ PRN (14:10)
[2023-12-17] MEDS: DEXAMETHASONE SOD PHOSPHATE 4 MG/ML 1 ML VIAL IV ONE (14:10)
[2023-12-17] MEDS: ONDANSETRON 4 MG/2 ML VIAL IVP ONE ×2 (14:10→19:20)
--- NOTE | 2023-12-17 14:40 | P.NAPBC ---
NAPBC Queries - NAPBC Queries Was patient's case review presented at [facility] tumor board? If no, comment.: Yes Was patient's pathology reviewed at [facility]? If no, comment.: Yes Was breast conservation surgery offered? If no, comment.: No Was sentinel node biopsy offered? If no, comment.: Yes Was diagnosis confirmed by percutaneous core biopsy? If no, comment.: Yes Is patient mastectomy patient?: Yes Was a preop referral to reconstructive surgeon offered?: Yes Clinical Stage: clinical stage IIIb T4a N1 M0 ER/GA positive HER2 negative G2 invasive lobular carcinoma of the right breast
[2023-12-17] MEDS ORDERED: PROPOFOL 10 MG/ML 20 ML VIAL IV ONE (15:19)
[2023-12-17] MEDS ORDERED: ROCURONIUM 10 MG/ML (5 ML VIAL) IV ONE (15:19)
[2023-12-17] MEDS ORDERED: LIDOCAINE 1% INJ 10MG/ML (20 ML MDV) ONE (15:19)
[2023-12-17] MEDS ORDERED: ePHEDrine 50 MG/ML 1 ML VIAL ONE (15:19)
[2023-12-17] MEDS ORDERED: fentaNYL (PF) 50 MCG/ML 2 ML AMP ONE (15:19)
[2023-12-17] MEDS ORDERED: SUCCINYLCHOLINE CHLORIDE 200 MG/10 ML VIAL IV ONE (15:19)
[2023-12-17] MEDS ORDERED: MIDAZOLAM 2 MG/2 ML VIAL ONE (15:19)
--- NOTE | 2023-12-17 15:24 | NM ---
EXAMINATION TYPE: NM sentinel node injection DATE OF EXAM: 12/17/2023 COMPARISON: NONE CLINICAL INDICATION: Female, 83 years old with history of C50.411 MALIGNANT NEOPLASM OF UPPER-OUTER Q UADRANT; TECHNIQUE AND FINDINGS: The procedure of sentinel lymph node injection was explained to the patient. The benefits, alternatives, and risks were discussed. An informed consent was then obtained. Overlying skin is cleaned with sterile alcohol. Following this, 519 uCi Tc99m Tilmanocept was inject ed in the upper outer aspect of the right nipple intradermally. The patient tolerated the procedure well without any immediate complication. The patient was kept in the radiology department for short stay after the procedure and then taken to surgery for surgical p rocedure what is presumed intraoperative gamma probe will be used for sentinel lymph node detection. IMPRESSION: Right breast radiotracer injection for sentinel node localization as above.
[2023-12-17] MEDS: LACTATED RINGERS 1,000 ML IV ONE (17:15)
[2023-12-17] MEDS ORDERED: ONDANSETRON 4 MG/2 ML VIAL IVP PRN (17:28)
[2023-12-17] MEDS ORDERED: NALOXONE 0.4 MG/ML 1 ML VIAL IV PRN (17:28)
--- NOTE | 2023-12-17 17:28 | P.BCAON ---
Date of Procedure: 12/17/23 Preoperative Diagnosis: Right breast invasive lobular carcinoma Postoperative Diagnosis: Same Procedure(s) Performed: Right breast mastectomy, axillary node resection Anesthesia: AMANDA Surgeon: Merna Russell Estimated Blood Loss (ml): 30 IV fluids (ml): 1,000 Pathology: other (Right breast, right axillary contents) Condition: stable Disposition: floor Indications for Procedure: Right breast invasive lobular carcinoma Operative Findings: Tumor was infiltrative in the breast towards the skin but free from the chest wall, dense reaction in the axillary tissues Description of Procedure: The patient was seen first in the radiology department where injection of radiotracer was placed in the periareolar area and needle localization of a known positive lymph node in the axilla was performed. The patient was then brought to the operative suite. In the operative suite following induction of anesthesia the neoprobe was utilized to interrogate the axilla. Minimal radioactivity was identified however secondary to the fact that needle localization of an area of concern to been performed methylene blue was not injected. The patient was then prepped and draped in a sterile fashion. The markings were placed for superior and inferior skin flaps. The skin was very thickened superior flap was created initially. The superior flap was created down to the pectoralis muscle. The inferior flap was then created down to the pectoralis muscle. Dissection was performed then removing the breast from medial to lateral off the pectoralis muscle. Dissection was performed to the axilla. The specimen was removed. The area of the needle was brought out into the axillary tissue. The area was grasped using an Allis clamp. Surrounding tissue was excised. No discrete lymph node was identified. The tissue adjacent to the needle however appeared to be replaced with tumor. It was very firm and abnormal. There was concern that the firm tissue in the axilla which was replacing the axillary tissue was adjacent to the axillary vessels. Therefore further dissection into this tissue was not performed. The neoprobe was used to interrogate the axilla and no definitive node with radioactivity was identified. The wound was well irrigated. A #10 BELLA drain was placed. Surgicel in powder form was placed. The superior and inferior skin flaps were brought together using 3-0 Vicryl interrupted suture. This was followed by a 3-0 Vicryl running subcu tenia suture. This was followed by a 4-0 running Monocryl subcuticular suture. The drain was secured using a nylon suture. The patient tolerated the procedure in stable condition. All instrument and sponge counts were correct at the end of the case. - Sentinal Node Biopsy Operation performed with curative intent: Yes Tracer(s) used in upfront surgery (non-neoadjuvant): N/A Tracer(s) used in the neoadjuvant setting: radioactive tracer All nodes present at end of dye-filled channel removed: N/A All significantly radioactive nodes were removed: N/A All palpably suspicious nodes were removed: Yes
[2023-12-17] MEDS: DEXTROSE 5%-0.45% NACL 1,000 ML IV SCH (20:18)
[2023-12-17] MEDS: ACETAMINOPHEN TAB 325 MG TAB PO PRN (20:29)
[2023-12-17] MEDS ORDERED: LEVOTHYROXINE SODIUM 13 MCG PO SCH (21:00)
[2023-12-17] MEDS: ATORVASTATIN 20 MG TAB PO SCH (21:02)
[2023-12-17] MEDS: lisinopriL 10 MG TAB PO SCH (21:02)
[2023-12-17] MEDS: HEPARIN SODIUM,PORCINE 5,000 UNIT/ML 1 ML VIAL SQ SCH (21:02)
[2023-12-18 04:57] VITALS: RESP 16
[2023-12-18 08:22] VITALS: BP 158/75; PULSE 95; TEMP 98.1
[2023-12-18 08:41] LABS: Basophils % (A) 0 %; Eosinophils % (A) 0 %; HCT 43.7 % (34.0-46.0); HGB 13.7 gm/dL (11.4-16.0); Lymphocytes % (A) 9 %; MCH 30.4 pg (25.0-35.0); MCHC 31.5 g/dL (31.0-37.0); MCV 96.6 fL (80.0-100.0); Mean Platelet Volume 8.3; Monocytes # (A) 0.4 k/uL (0-1.0); Monocytes % (A) 4 %; Neutrophils # (A) 9.7 k/uL (1.3-7.7); Neutrophils % (A) 86 %; Platelet Count 170 k/uL (150-450); RBC 4.52 m/uL (3.80-5.40); RDW 12.5 % (11.5-15.5); WBC 11.3 k/uL (3.8-10.6)
[2023-12-18] MEDS: METOPROLOL SUCCINATE (ER) 25 MG TAB.ER.24H PO SCH (09:07)
--- NOTE | 2023-12-18 09:35 | P.PN ---
Subjective Progress Note Date: 12/18/23 Principal diagnosis: Postop day #1 right mastectomy with axillary node biopsy Stella is an 83-year-old white female status post right mastectomy with axillary node biopsy on 12-18-2023. Postoperatively she is doing well. She is tolerating diet without difficulty. She is not complaining of pain. Her white count is 11.3. Her hemoglobin is 13.7. She has had minimal serous drainage from her BELLA drain. Objective - Vital Signs Vital signs: Vital Signs Temp 98.1 F 12/18/23 07:54 Pulse 95 12/18/23 07:54 Resp 16 12/18/23 07:54 BP 158/75 12/18/23 07:54 Pulse Ox 97 12/18/23 07:54 FiO2 Intake & Output 12/17/23 12/18/23 12/18/23 18:59 06:59 18:59 Intake Total 1350 Output Total 30 10 Balance 1320 -10 Weight 78.3 kg 78.3 kg Intake: IV 1350 Output: Drainage 10 Right 10 Estimated Blood Loss 30 Other: # Voids 1 - Constitutional General appearance: Present: cooperative - EENT Eyes: Present: EOMI ENT: Present: hearing grossly normal - Neck Neck: Present: normal ROM - Respiratory Respiratory: bilateral: CTA - Cardiovascular Rhythm: regular Heart sounds: normal: S1, S2 - Integumentary Integumentary Comment(s): Clean and dry BELLA output 30 cc serosanguineous in nature - Labs CBC & Chem 7: 12/18/23 08:26 Labs: Abnormal Lab Results - Last 24 Hours (Table) 12/18/23 Range/Units 08:26 WBC 11.3 H (3.8-10.6) k/uL Neutrophils # 9.7 H (1.3-7.7) k/uL Assessment and Plan Assessment: Impression: Patient doing well at this time Plan: Discharge home to be followed as an outpatient
--- NOTE | 2023-12-18 09:38 | P.DS ---
Providers Attending physician: Merna Russell Consults: 12/17/23 17:31 Consult Physician Routine Consulting Provider: James Hernandez Consult Reason/Comments: medical care Do you want consulting provider notified?: Yes Primary care physician: Margret Burgess Hospital Course: Admitted on 12-17-2023, patient discharged 12-18-2023 Plan 12-17-2023 underwent a right mastectomy and axillary node biopsy. Postoperatively she is doing well and ready for discharge. Procedures: Right mastectomy and axillary node biopsy Patient Condition at Discharge: Good Plan - Discharge Summary Discharge Rx Participant: No New Discharge Prescriptions: New oxyCODONE HCL [Oxaydo] 5 mg PO Q6H PRN 3 Days #10 tab PRN Reason: Pain Control oxyCODONE HCL [Oxaydo] 5 mg PO Q6H PRN 3 Days #10 tab PRN Reason: Pain No Action Simvastatin 40 mg PO HS Metoprolol Succinate (ER) [Toprol XL] 25 mg PO QAM Levothyroxine Sodium [Tirosint] 50 mcg PO HS Alendronate Sodium 70 mg PO ONEILL Multivitamin [Multivitamins Adult Gummies] 1 tab PO QAM Calcium Carbonate [Calcium] 1 cap PO DAILY lisinopriL [Prinivil] 10 mg PO QAM Anastrozole [Arimidex] 1 mg PO DAILY Aspirin 81 mg PO QAM Discharge Medication List Calcium Carbonate [Calcium] 1 cap PO DAILY 07/23/23 [History] Levothyroxine Sodium [Tirosint] 50 mcg PO HS 07/23/23 [History] Metoprolol Succinate (ER) [Toprol XL] 25 mg PO QAM 07/23/23 [History] Multivitamin [Multivitamins Adult Gummies] 1 tab PO QAM 07/23/23 [History] Simvastatin 40 mg PO HS 07/23/23 [History] lisinopriL [Prinivil] 10 mg PO QAM 08/27/23 [History] Anastrozole [Arimidex] 1 mg PO DAILY 09/12/23 [History] Aspirin 81 mg PO QAM 11/07/23 [History] Alendronate Sodium 70 mg PO ONEILL 12/12/23 [History] oxyCODONE HCL [Oxaydo] 5 mg PO Q6H PRN 3 Days #10 tab 12/17/23 [Rx] oxyCODONE HCL [Oxaydo] 5 mg PO Q6H PRN 3 Days #10 tab 12/17/23 [Rx] Follow up Appointment(s)/Referral(s): Merna Russell MD [STAFF PHYSICIAN] - 12/27/23 1:00 pm Activity/Diet/Wound Care/Special Instructions: Teach drain care, drain and record BELLA output twice daily and as needed May shower after 48 hours Dressing change daily Discharge Disposition: HOME SELF-CARE
[2023-12-18] MEDS: LEVOTHYROXINE 50 MCG TAB PO SCH (10:04)
--- NOTE | 2023-12-25 14:15 | MM ---
Risk Values: Ashwini 5 year model risk: 1.0%. NCI Lifetime model risk: 1.2%. Pathology Description: Location: axilla. Needle Type: 7 cm Kopan The procedure of needle localization with wire placement and than surgical excision was explained to the patient. Benefits, alternatives, and risks were discussed. An informed consent was then obtained. The shortest pathway for procedure was chosen. Shortest pathway was a lateral approach. The overlying skin was prepped and draped in usual sterile fashion. Lidocaine was used as anesthetic into the skin and subcutaneous tissue up to the level of area of concern. A 7 cm Kopans needle was used. It was placed via a lateral approach under direct ultrasound guidance. The target lesion is very small at 7 mm and located deep. Localization was challenging. Eventually, we were able to pass the needle through the small lesion and deployed the wire. The tip of the wire is 1 cm beyond the lesion. The wire was fixed to patient's skin. Images were marked for surgeon. The patient tolerated the procedure well without any immediate complication. The patient was kept in the radiology department for short stay after the procedure and then taken to surgery for surgical excision. Specimen mammogram is received. The wire is out of the specimen. No specific identifying landmarks are present within the specimen. The patient was kept in hospital for short stay after the procedure and then discharged home in stable condition. IMPRESSION: Successful, needle localization with wire placement and surgical excision of a small 7 mm positive right axillary lymph node in a patient with biopsy-proven right breast cancer. Full pathology results to follow. Pathology Results: Result: Malignant, Invasive lobular carcinoma. Pathology and radiology were reviewed. Findings are concordant. A. RIGHT BREAST, MASTECTOMY: Multifocal invasive lobular carcinoma, Grade 2, with lobular carcinoma in situ (LCIS), status post presurgical hormone therapy (see surgical pathology cancer case summary and comment). Posterior margin with favored minimal and focal involvement by few invasive carcinoma cells. All other breast margins negative with carcinoma 1 mm from inferior superficial margin and approximately 1.5 mm from superior superficial margin. Separate skin fragment with dermis involved by tumor with tumor present at peripheral cauterized dermal skin margins and deep subcutaneous margin negative. B. RIGHT AXILLARY TISSUE, EXCISION: One lymph node positive for metastatic lobular carcinoma with extranodal extension and fibrotic therapy response (see comment and cancer protocol). Extensive extranodal tumor present with tumor focally present at cauterized tissue surface. C. RIGHT AXILLARY TISSUE, EXCISION: One lymph node positive for metastatic lobular carcinoma with fibrotic therapy response and extensive extranodal tumor present (see comment and cancer protocol). Tumor focally present at cauterized tissue surface. Overall Assessment: Malignant Management: Surgical Consultation of the right breast. Electronically signed and approved by: Bennett Erwin M.D. Radiologist
== END 2023-12-18 10:43 | disposition home or self-care (01) ==
LOC: OR 11:42 → 4FBP 18:11 → OR 12-18 10:43
PROVIDERS: ATTEND Surgery
DX: C50.411 Malignant neoplasm of upper-outer quadrant of right female breast (principal)
CPT/HCPCS: 19303; 38500; 85025; 88342; 88307; 88341; 76098; 19285; 38792; C1819; A9520; J2250; J0330; J1644 ×2; J1100; J0690; J2405; J2001; J3010; J2704

== ENCOUNTER → 2023-12-27 | Outpatient (CLI) | payer MEDICARE ==
[2023-12-27 13:29] VITALS: BP 187/90; PULSE 87; RESP 17; TEMP 98.3
--- NOTE | 2023-12-27 13:49 | P.BCPO ---
Progress Note - Text Progress Note Date: 12/27/23 Stella is an 83 year old status post right mastectomy and Sxillary node sampling on 12-17-23. The pathology showed posterior margin minimal focal involvement on the muscle, ? tumor at dermal skin margins. Axilla 2 nodes + tumor macromets, and + axillary tissue. + T12 vertebral biopsy from November 2023. Lesion ER+Pr+Her2-. Examination: Lungs: Clear Heart: Regular rate and rhythm Incision: Clean and dry BELLA output serous minimal Plan: Follow-up medical oncology Follow-up radiation oncology Follow-up here next week for removal of BELLA drain as we are uncertain as to the amount of aspirin out each day Patient is given a copy of her pathology report Functional assessment passed without difficulty Post Op Education - Post Op Education Post Op Education Provided Date: 12/26/23 - Functional Assessment Performed?: Yes Path Report - Was patient given path report? Path Report Date Given: 12/26/23
== END ==
LOC: WWCWWP 12:31
PROVIDERS: ATTEND Surgery
DX: Z04.89 Encounter for examination and observation for other specified reasons (principal); L98.8 Other specified disorders of the skin and subcutaneous tissue; Z90.11 Acquired absence of right breast and nipple

== ENCOUNTER → 2023-12-31 | Outpatient (CLI) | payer MEDICARE ==
--- NOTE | 2023-12-31 12:11 | P.CON ---
Consult Note - . Consult date: 12/31/23 Assessment/Plan:: Stella is an 83 year old status post right mastectomy and Sxillary node sampling on 12-17-23. The pathology showed posterior margin minimal focal involvement on the muscle, ? tumor at dermal skin margins. Axilla 2 nodes + tumor macromets, and + axillary tissue. + T12 vertebral biopsy from November 2023. Lesion ER+Pr+Her2-. Examination: Incision: Clean and dry BLELA output serous minimal, about 20 cc/day Plan: dc BELLA drain Follow-up medical oncology Follow-up radiation oncology follow up here in 4 months CC: Dr. Burgess
[2023-12-31 15:31] VITALS: BP 127/88; PULSE 70; RESP 16; TEMP 98.2
== END ==
LOC: WWCWWP 12:01
PROVIDERS: ATTEND Surgery
DX: Z90.11 Acquired absence of right breast and nipple (principal)

== ENCOUNTER → 2024-01-22 | Outpatient (CLI) | payer MEDICARE ==
--- NOTE | 2024-01-22 10:26 | P.PN ---
Subjective Progress Note Date: 01/22/24 Stella is an 83 year old status post right mastectomy and Axillary node sampling on 12-17-23. The pathology showed posterior margin minimal focal involvement on the muscle, ? tumor at dermal skin margins. Axilla 2 nodes + tumor macromets, and + axillary tissue. + T12 vertebral biopsy from November 2023. Lesion ER+Pr+Her2-. 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 She completed neoadjuvant chemotherapy prior to surgery She complains of redness in the medial aspect of the incision about two days ago and swelling. She has not had any fever or chills. She is not complaining of any discomfort at the site. Examination: Erythema and swelling right mastectomy site Impression: Possible infected seroma right mastectomy site Plan: Incision and drainage of area of concern The patient was given the option of having this done in the operating room and has declined this and would like it to be done in the office Following informed consent manage of the area of concern will be performed. CC: Dr. Burgess Objective - Vital Signs Vital signs: Intake & Output 01/21/24 01/22/24 01/22/24 18:59 06:59 18:59 Weight 78.018 kg
[2024-01-22 10:40] VITALS: BP 175/94; PULSE 79; RESP 17; TEMP 98.2
--- NOTE | 2024-01-22 10:51 | P.PCN ---
Date of Procedure: 01/22/24 Preoperative Diagnosis: Possible infected seroma right chest wall Postoperative Diagnosis: Same Procedure(s) Performed: Incision and drainage infected seroma right chest wall Pathology: none sent Condition: stable Disposition: same day Operative Findings: Drainage incision right chest wall possible infected seroma Description of Procedure: Following informed consent the area of the right chest wall was prepped using chlorhexidine. A small incision was made in the medial aspect of the incision. The area was probed. Approximately 100 cc of serous fluid was removed. There was particulate matter which was extruded as well. This may have been old Surgicel in powder form. Following this the wound was well irrigated. Cultures were obtained. The wound was reinforced using 3-0 nylon suture. The wound was packed following irrigation. The patient tolerated the procedure in stable condition. The patient will be given prophylactic antibiotics.
== END ==
LOC: WWCWWP 09:20
PROVIDERS: ATTEND Surgery
DX: C50.911 Malignant neoplasm of unspecified site of right female breast (principal); Z90.11 Acquired absence of right breast and nipple; Z17.0 Estrogen receptor positive status [ER+]

== ENCOUNTER → 2024-01-23 | Outpatient (CLI) | payer MEDICARE ==
--- NOTE | 2024-01-23 10:44 | P.CON ---
Consult Note - . Consult date: 01/23/24 Assessment/Plan:: 01/23/24 Stella is an 83 year old status post right mastectomy and Axillary node sampling on 12-17-23. The pathology showed posterior margin minimal focal involvement on the muscle, ? tumor at dermal skin margins. Axilla 2 nodes + tumor macromets, and + axillary tissue. + T12 vertebral biopsy from November 2023. Lesion ER+Pr+Her2-. 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 She completed neoadjuvant chemotherapy prior to surgery She was seen on 2223 with a complaint of swelling and erythema of the mastectomy site. At that time the area was debrided and drained. She comes today for dressing change. Examination: Erythema mastectomy site resolving Packing changed cultures pending Impression: Home health care to follow patient Patient to follow-up tomorrow for packing change Dressing change is Curlex packed into the area as the area gets smaller and will be changed to iodoform gauze this can be done once a day CC: Dr. Burgess
[2024-01-23 12:11] VITALS: BP 186/85; PULSE 75; RESP 16; TEMP 98.8
== END ==
LOC: WWCWWP 09:29
PROVIDERS: ATTEND Surgery
DX: C50.911 Malignant neoplasm of unspecified site of right female breast (principal); L53.8 Other specified erythematous conditions; Z17.0 Estrogen receptor positive status [ER+]; Z90.11 Acquired absence of right breast and nipple; Z92.21 Personal history of antineoplastic chemotherapy

== ENCOUNTER → 2024-01-24 | Outpatient (CLI) | payer MEDICARE ==
[2024-01-24 10:04] VITALS: BP 165/75; PULSE 79; RESP 16; TEMP 98.3
--- NOTE | 2024-01-24 10:14 | P.CON ---
Consult Note - . Consult date: 01/24/24 Assessment/Plan:: 01/24/24 Stella is an 83 year old status post right mastectomy and Axillary node sampling on 12-17-23. The pathology showed posterior margin minimal focal involvement on the muscle, ? tumor at dermal skin margins. Axilla 2 nodes + tumor macromets, and + axillary tissue. + T12 vertebral biopsy from November 2023. Lesion ER+Pr+Her2-. 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 She completed neoadjuvant chemotherapy prior to surgery She was seen on 2223 with a complaint of swelling and erythema of the mastectomy site. At that time the area was debrided and drained. She comes today for dressing change. Cultures from 01-22-2024 many PMNs, few gram-positive cocci in clusters patient is presently on Keflex Examination: Erythema mastectomy site resolving Packing changed cultures as above Several sutures reinforcing the incision are left in place. Impression: Home health care offered and declined Patient sister taught how to do dressing changes follow up in two weeks Dressing change is Curlex packed into the area as the area gets smaller and will be changed to iodoform gauze this can be done once a day Sister are aware that I will be gone for 2 weeks. If they have any concerns they will follow with Dr. Malcolm.
== END ==
LOC: WWCWWP 09:41
PROVIDERS: ATTEND Surgery
DX: C50.911 Malignant neoplasm of unspecified site of right female breast (principal); L53.8 Other specified erythematous conditions; B96.89 Other specified bacterial agents as the cause of diseases classified elsewhere; Z90.11 Acquired absence of right breast and nipple; Z17.0 Estrogen receptor positive status [ER+]; Z92.21 Personal history of antineoplastic chemotherapy

== ENCOUNTER → 2024-02-12 | Outpatient (CLI) | payer MEDICARE ==
[2024-02-12 11:49] VITALS: BP 182/77; PULSE 82; RESP 17; TEMP 98
--- NOTE | 2024-02-12 12:21 | P.PN ---
Subjective Progress Note Date: 02/12/24 01/24/24 Stella is an 83 year old status post right mastectomy and Axillary node sampling on 12-17-23. The pathology showed posterior margin minimal focal involvement on the muscle, ? tumor at dermal skin margins. Axilla 2 nodes + tumor macromets, and + axillary tissue. + T12 vertebral biopsy from November 2023. Lesion ER+Pr+Her2-. 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 She completed neoadjuvant chemotherapy prior to surgery She was seen on 2223 with a complaint of swelling and erythema of the mastectomy site. At that time the area was debrided and drained. She presented on 01-24-24 for dressing change. Cultures from 01-22-2024 many PMNs, few gram-positive cocci in clusters patient was on Keflex The patient's sister has been changing her packing and she has been doing well. She has had no fever or chills. Examination: Erythema mastectomy site resolved Packing changed cultures as above Open area in the medial aspect of the incision is approximately 2-1/2 cm in length, sutures were removed and new sutures were placed to reinforce this area Following informed consent the area of concern was addressed. The prior sutures were removed. 2 new 3-0 nylon sutures were placed both medially and laterally to help reinforce the incision. Impression: Home health care offered and declined Patient sister taught how to do dressing changes follow up in two weeks Dressing change is with iodoform today Objective - Vital Signs Vital signs: Vital Signs Temp 98 F 02/12/24 11:47 Pulse 82 02/12/24 11:47 Resp 17 02/12/24 11:47 BP 182/77 02/12/24 11:47 Pulse Ox 98 02/12/24 11:47 FiO2 Intake & Output 02/11/24 02/12/24 02/12/24 18:59 06:59 18:59 Weight 78.018 kg
== END ==
LOC: WWCWWP 10:39
PROVIDERS: ATTEND Surgery
DX: L53.8 Other specified erythematous conditions (principal); C50.911 Malignant neoplasm of unspecified site of right female breast; Z90.11 Acquired absence of right breast and nipple; Z92.21 Personal history of antineoplastic chemotherapy; Z17.0 Estrogen receptor positive status [ER+]

== ENCOUNTER → 2024-02-27 | Outpatient (CLI) | payer MEDICARE ==
[2024-02-27 12:28] VITALS: BP 181/82; PULSE 74; RESP 16; TEMP 98.3
--- NOTE | 2024-02-27 12:45 | P.CON ---
Consult Note - . Consult date: 02/27/24 Assessment/Plan:: 02/12/24 01/24/24 Stella is an 83 year old status post right mastectomy and Axillary node sampling on 12-17-23. The pathology showed posterior margin minimal focal involvement on the muscle, ? tumor at dermal skin margins. Axilla 2 nodes + tumor macromets, and + axillary tissue. + T12 vertebral biopsy from November 2023. Lesion ER+Pr+Her2-. 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 She completed neoadjuvant chemotherapy prior to surgery She was seen on 2223 with a complaint of swelling and erythema of the mastectomy site. At that time the area was debrided and drained. She presented on 01-24-24 for dressing change. Cultures from 01-22-2024 many PMNs, few gram-positive cocci in clusters patient was on Keflex seen on 02-12-24 incision open medial aspect 1.5 cm in length, packing changed, new sutures placed The patient's sister has been changing her packing and she has been doing well. She has had no fever or chills. Examination: Erythema mastectomy site resolved Packing changed Open area in the medial aspect of the incision is approximately 2 cm in length, sutures were removed clean granulation tissue at the base Impression: Follow-up in 1 month After this is completely healed she will follow-up with radiation oncology Dressing change is with iodoform today CC: Dr. Burgess
== END ==
LOC: WWCWWP 11:14
PROVIDERS: ATTEND Surgery
DX: L53.8 Other specified erythematous conditions (principal); C50.911 Malignant neoplasm of unspecified site of right female breast; N63.10 Unspecified lump in the right breast, unspecified quadrant; Z92.21 Personal history of antineoplastic chemotherapy; Z17.0 Estrogen receptor positive status [ER+]; Z90.11 Acquired absence of right breast and nipple

== ENCOUNTER → 2024-04-02 | Outpatient (CLI) | payer MEDICARE ==
--- NOTE | 2024-04-02 10:53 | P.PN ---
Subjective Progress Note Date: 04/02/24 12/05/23 right breast invasive lobular cancer Stella is an 83 year old white female seen in consultation for Dr. Burgess regarding a right breast invasive lobular cancer. Screening mammogram on . This was felt to be bilateral. Additional views of the right breast were recommended. Additional views were obtained on [id number]. This revealed the breast to be heterogeneously dense with a persistent mass in the upper outer quadrant of the right breast measuring 6.2 x 3.6 cm. This led to an ultrasound on the same date. The ultrasound revealed a heterogeneous irregular tissue with mass like appearance from the 9 o'clock position. It measured grossly up to 6.4 cm. Biopsy was recommended. Biopsy was performed on [id number] which revealed an invasive lobular carcinoma grade 2. This is ER/VT positive and HER-2 questionable, Fish (-). The patient complained of some fullness in her right b reast, it had been present for about 3 months. She has an inverted nipple for about 1 year on the right side. She does not feel anything of concern in the left breast. She has not had any surgery on her breast. She has intermittent twinges in her right breast. She is not complaining of any nipple discharge. Core biopsy right axilla 09-13-2023 positive invasive lobular cancer Treated with hormone therapy, anastrozole. Secondary to osteopenia Fosamax has been added. She underwent a T12 vertebral body biopsy on 11-07-2023 which was negative for metastatic disease or myeloma. A DEXA scan revealed osteopenia. Due to the osteopenia and use of anastrozole she is started on Fosamax. She will continue vitamin D and calcium. She has been tolerating the anastrozole well. She is going to have a repeat right breast MRI. Note 11-20-2023 Dr. Hampton reviewed Radiation oncology note 08-21-2023 reviewed; it was felt that she had a clinical stage IIIb T4a N1 M0 ER/VT positive HER2 negative G2 invasive lobular carcinoma of the right breast; the plan was for completion of neoadjuvant therapy, probable mastectomy, and postprocedure radiation therapy secondary to the stage of the tumor. She states the lesion has gotten smaller, she also states the pain is less. 04-02-24 The patient underwent a right mastectomy and axillary node sampling on 12-17-23. The pathology showed posterior margoin involvement on the muscle, ? tumor at dermal ski margins. 2 nodes with macromets. She had a T12 vertebral biopsy which was +. She was seen on 01-22-24 with a complaint of swelling and erythema of the mastectomy site. At that thie the area was debrided and drained. She was treated at home with her sister changing the dressing. She is not complaining of any drainage from her right chest wall. She states that no packing can be inserted because it is healed. And she is not complaining of any new lumps masses or nodules of concern in her left breast. She is presently on anastrozole caffeine: 2-3 cups/day nicotine: none chocolate:occasional Family History: mother: brain cancer at 35 Hormonal History: menarche: 13 G0 menopause: hysterectomy at 52, took her ovaries, done for fibroids Surgical history: hysterectomy gallbladder right mastectomy and node biopsy Medical History: HTN SociaL History: nicotine: none alcohol: none drugs: none - Constitutional Constitutional: Denies chills, Denies fever - EENT Eyes: denies blurred vision, denies pain Ears: deny: decreased hearing, tinnitus Ears, nose, mouth and throat: Denies headache, Denies sore throat - Breasts Breasts: bilateral: as per HPI - Cardiovascular Cardiovascular: Denies chest pain, Denies shortness of breath - Respiratory Respiratory: Denies cough - Gastrointestinal Gastrointestinal: Denies abdominal pain, Denies diarrhea, Denies nausea, Denies vomiting - Genitourinary (Female) Genitourinary: Denies dysuria, Denies hematuria - Menstruation Menstruation: Reports post hysterectomy - Musculoskeletal Musculoskeletal: Denies myalgias - Integumentary Integumentary: Denies pruritus, Denies rash - Neurological Neurological: Denies numbness, Denies weakness - Psychiatric Psychiatric: Denies anxiety, Denies depression - Endocrine Endocrine: Denies fatigue, Denies weight change - Hematologic/Lymphatic Comment: none - Allergic/Immunologic Allergic/Immunologic: Reports as per HPI Objective - Constitutional General appearance: Present: cooperative - EENT Eyes: Present: EOMI ENT: Present: hearing grossly normal - Neck Neck: Present: normal ROM - Respiratory Respiratory: bilateral: CTA - Cardiovascular Heart sounds: normal: S1, S2 - Integumentary Integumentary: Present: normal turgor - Musculoskeletal Musculoskeletal Comment(s): kyphosis Musculoskeletal: Present: gait normal - Psychiatric Psychiatric: Present: A&O x's 3, appropriate affect, intact judgment & insight - Additional findings Additional findings: Breast examination: Inspection: Right chest wall incision clean and dry well-healed, left breast grade 2/3 ptosis Palpation: Right chest wall: The incision is completely healed at this time, there is no evidence of seroma or infection. Right axilla: No adenopathy of concern Left breast: Multi positional exam no dominant masses or nodules of concern Left axilla: No adenopathy of concern Assessment and Plan Assessment: Impression: Patient's status post right breast mastectomy with sentinel node sampling positive margin posterior/questionable involvement at the dermal surface Patient's status post neoadjuvant chemotherapy Patient presently on anastrozole Left breast fibrocystic changes Questionable lesion at T12 Plan: Patient is ready for radiation therapy at this time consult radiation therapy Continue anastrozole Consider pathology at T12 biopsy by radiology left breast mammogram in August 2024 with appointment at that time CC: Dr. Burgess
[2024-04-02 10:57] VITALS: BP 181/83; PULSE 79; RESP 17; TEMP 98.1
== END ==
LOC: WWCWWP 09:52
PROVIDERS: ATTEND Surgery
DX: Z48.817 Encounter for surgical aftercare following surgery on the skin and subcutaneous tissue (principal); N63.11 Unspecified lump in the right breast, upper outer quadrant; R92.331 Mammographic heterogeneous density, right breast; N60.12 Diffuse cystic mastopathy of left breast; M85.80 Other specified disorders of bone density and structure, unspecified site; Z90.11 Acquired absence of right breast and nipple; Z92.21 Personal history of antineoplastic chemotherapy; Z85.3 Personal history of malignant neoplasm of breast

== ENCOUNTER → 2024-05-15 | Outpatient (CLI) | payer MEDICARE ==
--- NOTE | 2024-05-15 18:02 | PE ---
EXAMINATION TYPE: PET CT fusion skull to thigh DATE OF EXAM: 05/15/2024 CLINICAL INDICATION:Female, 84 years old with history of C50.411 Breast ca; TECHNIQUE: Following the intravenous administration of 12.57 mCi of F-18 FDG, whole body images are performed from the skull base to the midthigh. Images are reviewed on the computer in the coronal, axial, and sagittal planes. Reconstructed rotating images are created on independent workstation and reviewed on the computer. A non-contrast CT is performed in conjunction with the PET scan. Glucose level 121 mg/dL CT DLP: 655.07 mGycm, Automated exposure control for dose reduction was used. COMPARISON: CT 10/28/2023, PET/CT 08/15/2023, MRI: 08/28/2023, 08/03/2023 FINDINGS: Mediastinal SUV mean is 2.6. Hepatic parenchyma SUV mean is 3.8. SKULL BASE AND NECK: Physiologic uptake identified within the tongue and vocal cords. Focal region within the right palati ne tonsil likely related to an infectious/ inflammatory process. Maximum SUV of 7.1. CHEST, MEDIASTINUM, AND HILAR REGION: Postsurgical changes from right mastectomy. Demonstrates low level uptake with a maximum SUV of 3.8. No new suspicious radiotracer activity. ABDOMEN AND PELVIS: Low-level physiologic uptake within the bowel. Focal uptake identified within the rectum with a maximum SUV of 7.5. Poor evaluation of the rectum du e to underdistention. MUSCULOSKELETAL STRUCTURES: No suspicious radiotracer activity. OTHER CT: Bilateral carotid bulb calcifications. Small aortic valvular and mitral annulus calcificati ons. Large hiatal hernia within intrathoracic stomach. Marked S-shaped scoliotic curvature of the tho racolumbar spine. Tortuosity of the aorta. Post hysterectomy changes. Post cholecystectomy changes. F ocal stranding involving a short segment of the sigmoid descending colon junction (series 3, image 27 ). Sigmoid diverticulosis. Multilevel degenerative disc disease. Postsurgical changes with vertebral augmentation involving the T12 vertebral body. IMPRESSION: 1. Postsurgical changes from right mastectomy with low level background uptake. No focal breast FDG uptake to suggest recurrence. 2. Small focal region of radiotracer uptake identified within the rectum. This may be physiologic ho wever underlying inflammation/infection or malignancy is not excluded. Consider direct visualization. 3. Small focal region of radiotracer uptake within the right palatine tonsil. Likely related to an i nfectious/inflammatory etiology. 4. Short segment focal stranding changes involving the sigmoid/descending colon junction. Etiologies include diverticulitis versus colitis or infectious/inflammatory etiology. No surrounding fluid brianna ection. 5. Large hiatal hernia with intrathoracic stomach.
== END | disposition home or self-care (01) ==
LOC: RADPETMAIN 13:05
PROVIDERS: ATTEND Radiology Radiation Oncology
DX: C50.411 Malignant neoplasm of upper-outer quadrant of right female breast
CPT/HCPCS: 78815

== ENCOUNTER → 2024-08-10 | Outpatient (CLI) | payer MEDICARE ==
--- NOTE | 2024-08-10 14:26 | MM ---
Reason for Exam: Follow-up at short interval from prior study. Last mammogram was performed 1 year(s) and 2 month(s) ago. Patient History: Breast cancer, right, age 83. 12/17/2023, Mastectomy on the Right side. 12/17/2023, Malignant US breast localization RT on the right side. Prior Study Comparison: 08/03/2023 Bilateral MR breast bilat wo/w con, [facility]. Tissue Density: Left: The breasts are heterogeneously dense, which may obscure small masses. Findings: Analyzed By CAD. Pattern is stable. Multiple linear calcifications are present. Focal asymmetry is stable however left posterior breast. Asymmetry subareolar left breast stable. No suspicious groups of microcalcifications, spiculated or lobular masses, architectural distortion or other secondary signs of malignancy are mammographically apparent. Overall Assessment: Benign, BI-RAD 2 Management: Screening Mammogram of the left breast in 1 year. A negative mammogram report should not preclude additional follow up of suspicious palpable abnormalities. Patient should continue monthly self breast exam. A clinical breast exam by your physician is recommended on an annual basis and results should be correlated with mammographic findings. Note on Ashwini scores and lifetime risk: 1. A Ashwini score greater than 3% is considered moderate risk. If this is the case, consider specialist referral to assess eligibility for a risk reducing agent. 2. If overall lifetime risk for the development of breast cancer is 20% or higher, the patient may qualify for future screening with alternating mammogram and breast MRI. [facility], , 08/10/2024 2:23 PM. Electronically signed and approved by: Adrian Anthony D.O. Radiologis
== END | disposition home or self-care (01) ==
LOC: RADMAMWWP 13:24
PROVIDERS: ATTEND Surgery
DX: R92.8 Other abnormal and inconclusive findings on diagnostic imaging of breast (principal); R92.333 Mammographic heterogeneous density, bilateral breasts; Z85.3 Personal history of malignant neoplasm of breast; Z90.11 Acquired absence of right breast and nipple
CPT/HCPCS: 77061; 77065

== ENCOUNTER → 2024-09-18 | Outpatient (CLI) | payer MEDICARE ==
[2024-09-18 14:01] VITALS: BP 177/96; PULSE 92; RESP 17; TEMP 98.2
--- NOTE | 2024-09-18 14:24 | P.PN ---
Subjective Progress Note Date: 09/18/24 Principal diagnosis: Invasive lobular carcinoma right breast t4a N1 M0 ER/UT positive HER2 negative G2 Subjective Progress Note Date: 09-18-24 [id number]- stage IV right breast invasive lobular cancer Stella is an 83-year-old white female initially seen in consultation for Dr. Burgess regarding a right breast invasive lobular carcinoma. Screening mammogram was done on 06-05-24. Further workup revealed a persistent mass in the upper outer quadrant measuring 6.2 x 3.6 cm. An ultrasound was performed and a biopsy was done. Biopsy was done on 07-15-2023. This revealed invasive lobular carcinoma grade 2, ER/UT positive, and HER2 negative. Biopsy right axilla and 09-13-2023 revealed positive invasive lobular carcinoma. She was treated with hormone therapy/anastrozole. Secondary to osteopenia Fosamax was added. She underwent a T12 vertebral body biopsy on 11-07-2023. This was negative for metastatic disease or myeloma. A DEXA scan revealed osteopenia. Patient received neoadjuvant chemotherapy. She underwent a right mastectomy and axillary node sampling on 12-17-2023. Pathology showed posterior margin involvement on the muscle, questionable term were at the dermal skin margins. 2 nodes with macrometastasis. She was seen on 01-22-2024 with a complaint of swelling and erythema of the mastectomy site. At that time the area was debrided and drained. She was most recently seen in April 2024 and at that time the incision was completely healed. Was noted to have a focus of tumor in T12. Left breast mammogram on 08-10-2024 which was benign BI-RADS 2 RAdiation oncology note 1 25 reviewed; she underwent a course of adjuvant fractionated right chest wall and regional darren radiation with a sequential chest wall scar boost to 6000 centigrade. She completed treatment on 07-22-2024. She is not complaining of any new lumps masses or nodules of concern in her whole or left breast caffeine: 2-3 cups/day nicotine: none chocolate:occasional Family History: mother: brain cancer at 35 Hormonal History: menarche: 13 G0 menopause: hysterectomy at 52, took her ovaries, done for fibroids Surgical history: hysterectomy gallbladder right mastectomy and node biopsy Medical History: HTN SociaL History: nicotine: none alcohol: none drugs: none - Constitutional Constitutional: Denies chills, Denies fever - EENT Eyes: denies blurred vision, denies pain Ears: deny: decreased hearing, tinnitus Ears, nose, mouth and throat: Denies headache, Denies sore throat - Breasts Breasts: bilateral: as per HPI - Cardiovascular Cardiovascular: Denies chest pain, Denies shortness of breath - Respiratory Respiratory: Denies cough - Gastrointestinal Gastrointestinal: Denies abdominal pain, Denies diarrhea, Denies nausea, Denies vomiting - Genitourinary (Female) Genitourinary: Denies dysuria, Denies hematuria - Menstruation Menstruation: Reports post hysterectomy - Musculoskeletal Musculoskeletal: Denies myalgias - Integumentary Integumentary: Denies pruritus, Denies rash - Neurological Neurological: Denies numbness, Denies weakness - Psychiatric Psychiatric: Denies anxiety, Denies depression - Endocrine Endocrine: Denies fatigue, Denies weight change - Hematologic/Lymphatic Comment: none - Allergic/Immunologic Allergic/Immunologic: Reports as per HPI Objective - Vital Signs Vital signs: Vital Signs Temp 98.2 F 09/18/24 13:59 Pulse 92 09/18/24 13:59 Resp 17 09/18/24 13:59 BP 177/96 09/18/24 13:59 Pulse Ox 95 09/18/24 13:59 FiO2 Intake & Output 09/17/24 09/18/24 09/18/24 18:59 06:59 18:59 Weight 79.832 kg - Constitutional General appearance: Present: cooperative - EENT Eyes: Present: edentulous - Neck Neck: Present: normal ROM - Respiratory Respiratory: bilateral: CTA - Cardiovascular Rhythm: regular Heart sounds: normal: S1, S2 - Integumentary Integumentary: Present: normal turgor - Musculoskeletal Musculoskeletal: Present: gait normal - Psychiatric Psychiatric: Present: A&O x's 3, appropriate affect, intact judgment & insight - Additional findings Additional findings: Breast examination: Inspection: Right chest wall incision clean and dry well-healed, left breast grade 2/3 ptosis Palpation: Right chest wall: The incision is completely healed at this time, there is no evidence of seroma or infection. Right axilla: No adenopathy of concern Left breast: Multi positional exam no dominant masses or nodules of concern Left axilla: No adenopathy of concern Assessment and Plan Assessment: Impression: Patient status post right breast mastectomy with sentinel node sampling positive margin posterior/questionable involvement at the dermal surface Patient's status post neoadjuvant chemotherapy Patient presently on anastrozole Left breast fibrocystic changes T12 abliterated by Dr. Carey Plan: follow with raidiation and medical oncology Continue anastrozole left breast mammogram in August 2025 with appointment at that time follow up in 6 months for exam CC: Dr. Burgess
== END ==
LOC: WWCWWP 13:01
PROVIDERS: ATTEND Surgery
DX: N60.12 Diffuse cystic mastopathy of left breast (principal); Z90.11 Acquired absence of right breast and nipple; Z92.21 Personal history of antineoplastic chemotherapy

== ENCOUNTER → 2025-03-18 | Outpatient (CLI) | payer MEDICARE ==
[2025-03-18 14:54] VITALS: BP 124/83; PULSE 78; RESP 16; TEMP 97.9
--- NOTE | 2025-03-18 15:01 | P.PN ---
Subjective Progress Note Date: 03/18/25 Principal diagnosis: Invasive lobular carcinoma right breast T4a N1 M0 ER/MS positive HER2 negative G2 Subjective Progress Note Date: 03-18-25 Principal diagnosis: Invasive lobular carcinoma right breast T4a N1 M0 ER/MS positive HER2 negative G2 Subjective Progress Note Date: 03-18-25 [id number]+Her2- stage IV right breast invasive lobular cancer Stella is an 84-year-old white female initially seen in consultation for Dr. Burgess regarding a right breast invasive lobular carcinoma. Screening mammogram was done on 06-05-24. Further workup revealed a persistent mass in the upper outer quadrant measuring 6.2 x 3.6 cm. An ultrasound was performed and a biopsy was done. Biopsy was done on 07-15-2023. This revealed invasive lobular carcinoma grade 2, ER/MS positive, and HER2 negative. Biopsy right axilla and 09-13-2023 revealed positive invasive lobular carcinoma. She was treated with hormone therapy/anastrozole. Secondary to osteopenia Fosamax was added. She underwent a T12 vertebral body biopsy on 11-07-2023. This was negative for metastatic disease or myeloma. A DEXA scan revealed osteopenia. Patient received neoadjuvant chemotherapy. She underwent a right mastectomy and axillary node sampling on 12-17-2023. Pathology showed posterior margin involvement on the muscle, questionable tumor at the dermal skin margins. 2 nodes with macrometastasis. She was seen on 01-22-2024 with a complaint of swelling and erythema of the mastectomy site. At that time the area was debrided and drained. She was most recently seen in April 2024 and at that time the incision was completely healed. Was noted to have a focus of tumor in T12. Left breast mammogram on 08-10-2024 which was benign BI-RADS 2 RAdiation oncology note 09 03 24 reviewed; she underwent a course of adjuvant fractionated right chest wall and regional darren radiation with a sequential chest wall scar boost to 6000 centigrade. She completed treatment on 07-22-2024. She is not complaining of any new lumps masses or nodules of concern in her whole or left breast PET scan 05-15-2024 reviewed, patient recommended to have a colonoscopy, she states she will have it done soon note radiation oncology 02-16-25 reviewed; right chest wall and regional darren irradiation with a boost to 6000 cGy completing treatment on 07-22-2024 note medical oncology 01-01-[address] Jadien Hampton: metastatic invasive lobular cancer to T12; PET/CT on 05-15-24 no evidence of mets, continue anastrozole; clinical follow up caffeine: 2-3 cups/day nicotine: none chocolate:occasional Family History: mother: brain cancer at 35 Hormonal History: menarche: 13 G0 menopause: hysterectomy at 52, took her ovaries, done for fibroids Surgical history: hysterectomy gallbladder right mastectomy and node biopsy Medical History: HTN SociaL History: nicotine: none alcohol: none drugs: none - Constitutional Constitutional: Denies chills, Denies fever - EENT Eyes: denies blurred vision, denies pain Ears: deny: decreased hearing, tinnitus Ears, nose, mouth and throat: Denies headache, Denies sore throat - Breasts Breasts: bilateral: as per HPI - Cardiovascular Cardiovascular: Denies chest pain, Denies shortness of breath - Respiratory Respiratory: Denies cough - Gastrointestinal Gastrointestinal: Denies abdominal pain, Denies diarrhea, Denies nausea, Denies vomiting - Genitourinary (Female) Genitourinary: Denies dysuria, Denies hematuria - Menstruation Menstruation: Reports post hysterectomy - Musculoskeletal Musculoskeletal: Denies myalgias - Integumentary Integumentary: Denies pruritus, Denies rash - Neurological Neurological: Denies numbness, Denies weakness - Psychiatric Psychiatric: Denies anxiety, Denies depression - Endocrine Endocrine: Denies fatigue, Denies weight change - Hematologic/Lymphatic Comment: none - Allergic/Immunologic Allergic/Immunologic: Reports as per HPI Objective - Constitutional General appearance: Present: cooperative - EENT Eyes: Present: EOMI ENT: Present: hearing grossly normal - Neck Neck: Present: normal ROM - Respiratory Respiratory: bilateral: CTA - Cardiovascular Rhythm: regular Heart sounds: normal: S1, S2 - Integumentary Integumentary: Present: normal turgor - Musculoskeletal Musculoskeletal: Present: gait normal - Psychiatric Psychiatric: Present: A&O x's 3, appropriate affect, intact judgment & insight - Additional findings Additional findings: Breast examination: Inspection: Right chest wall incision clean and dry well-healed, left breast grade 2/3 ptosis Palpation: Right chest wall: The incision is completely healed at this time, there is no evidence of seroma or infection. Right axilla: No adenopathy of concern Left breast: Multi positional exam no dominant masses or nodules of concern Left axilla: No adenopathy of concern Assessment and Plan Assessment: Impression: Patient status post right breast mastectomy with sentinel node sampling positive margin posterior/questionable involvement at the dermal surface Patient presently on anastrozole Left breast fibrocystic changes T12 abliterated by Dr. Carey Plan: follow with medical oncology Continue anastrazole left breast mammogram in August 2026 with appointment at that time follow up sooner any concerns CC: Dr. Burgess
== END ==
LOC: WWCWWP 14:19
PROVIDERS: ATTEND Surgery
DX: N60.12 Diffuse cystic mastopathy of left breast (principal); Z90.11 Acquired absence of right breast and nipple; Z79.811 Long term (current) use of aromatase inhibitors